=== PATIENT | male | born 1930 | race Caucasian/White ===

== ENCOUNTER → 2016-02-17 | Outpatient (CLI) | payer MEDICARE | LOC: EMS 11:21 | PROVIDERS: ATTEND Family Medicine | DX: R31.9 Hematuria, unspecified (principal) ==

== ENCOUNTER → 2016-05-08 | Outpatient (CLI) | payer MEDICARE | LOC: EMS 09:00 | PROVIDERS: ATTEND Family Medicine | DX: R53.83 Other fatigue (principal); R82.99 Other abnormal findings in urine; R03.1 Nonspecific low blood-pressure reading ==

== ENCOUNTER → 2016-05-31 | Outpatient (CLI) | payer MEDICARE | LOC: EMS 06:47 | PROVIDERS: ATTEND Student in an Organized Health Care Education/Training Program | DX: I46.9 Cardiac arrest, cause unspecified (principal) ==